=== PATIENT | female | born 1945 | race Two or more races ===

== ENCOUNTER 2019-01-22 17:46 | Emergency (ER) | payer MEDICARE, MEDICAID ==
[~2019-01-22] VITALS: Ht 154.9 cm; Wt 113.4 kg
[~2019-01-22 17:46] MED LIST: ALPR0.254 PO; ATOR20TA50 PO; BACL20TA PO; FAM20T PO; HYDR-4683 PO; INSU1INJ14 SC; LEVO125T7 PO; LISI10TA6 PO; LORA-654 PO; METO-158 PO; OME20T PO; SERT-135 PO; TEMA30CA PO
[2019-01-22 19:34] LABS: Basophils # (auto) 0 uL; Basophils % (auto) 0.4 % (0.0-2.0); Eosinophils # (auto) 0 uL; Eosinophils % (auto) 0.2 % (0.0-7.0); Hematocrit 40.1 % (36.0-46.0); Hemoglobin 13.1 g/dL (12.2-16.2); Lymphocytes # (auto) 0.7 uL; Lymphocytes % (auto) 10.6 % (10.0-50.0); Mean Corpuscular Hemoglobin 29.3 pg (28.0-32.0); Mean Corpuscular Hgb Conc. 32.6 g/dL (32.0-36.0); Mean Corpuscular Volume 89.8 fL (80.0-100.0); Monocytes # (auto) 0.3 uL; Monocytes % (auto) 4.9 % (0.0-12.0); Neutrophils # (auto) 5.3 uL; Neutrophils % (auto) 83.9 % (37.0-80.0); Platelet Count (auto) 263 10^3/uL (140-450); Red Blood Cells 4.46 10^6/uL (4.0-5.20); Red Cell Distribution Width 16.5 % (11.8-14.3); White Blood Cell 6.3 10^3/uL (4.4-10.8)
[2019-01-22 19:48] LABS: Chloride 109 mmol/L (98-107); Sodium 139 mmol/L (136-145)
[2019-01-22 19:51] LABS: Albumin 3.6 g/dL (3.4-5.0); Anion Gap 8 (5-15); Blood Urea Nitrogen 21 mg/dL (7-18); Calcium 8.4 mg/dL (8.5-10.1); Carbon Dioxide 22 mmol/L (21-32); Glucose 132 mg/dL (74-106); Magnesium 2.4 mg/dL (1.6-2.6)
[2019-01-22 19:57] LABS: Alkaline Phosphatase 117 U/L (45-117); Aspartate Aminotransferase 24 U/L (15-37); BUN/Creatinine Ratio 22.3; Bilirubin, Total 0.3 mg/dL (0.2-1.0); GFR African American 75 mL/min; GFR Non-African American 62 mL/min; Total Protein 8.3 g/dL (6.4-8.2)
[2019-01-22 20:04] LABS: Alanine Aminotransferase 27 U/L (13-56)
[2019-01-22] MEDS ORDERED: FAMOTIDINE (10MG/ML) 2ML VL IV ONE (23:15)
[2019-01-22] MEDS ORDERED: ONDANSETRON HCL 4 MG/2 ML VIAL IV ONE (23:15)
[2019-01-22] MEDS ORDERED: SODIUM CHLORIDE 0.9% 1,000 ML IV ONE (23:15)
[2019-01-23 04:31] LABS: Amylase 37 U/L (25-115); Lipase 76 U/L (73-393)
[2019-01-23 08:21] VITALS: BP 134/76
== END 2019-01-23 09:20 | disposition home or self-care (01) ==
LOC: EDBD 17:46 → ER 17:46
DX: K29.00 Acute gastritis without bleeding (principal); E11.9 Type 2 diabetes mellitus without complications; I10 Essential (primary) hypertension; Z90.49 Acquired absence of other specified parts of digestive tract
CPT/HCPCS: 36415; 71045; 74176; 80053; 82150; 83690; 83735; 84484; 85025; 93005; 96361; 96374; 96375; 99284; J2405; J3490

== ENCOUNTER 2019-03-19 09:02 | Inpatient (IN) | payer MEDICARE, MEDICAID | END 2019-03-21 07:00 | disposition left against medical advice (07) | LOC: TELE-CENTR 03-20 02:34 → ER 09:02 → TELE 11:36 → CENTRAL 13:02 | DX: I13.0 Hypertensive heart and chronic kidney disease with heart failure and stage 1 through stage 4 chronic kidney disease, or unspecified chronic kidney disease (principal); I50.43 Acute on chronic combined systolic (congestive) and diastolic (congestive) heart failure; I47.1 Supraventricular tachycardia; E66.01 Morbid (severe) obesity due to excess calories; E78.5 Hyperlipidemia, unspecified; F41.9 Anxiety disorder, unspecified; J44.9 Chronic obstructive pulmonary disease, unspecified ==

== ENCOUNTER 2019-05-30 14:16 | Inpatient (IN) | payer MEDICARE, MEDICAID ==
[~2019-05-30] VITALS: Ht 157.5 cm; Wt 124.9 kg
[~2019-05-30 14:16] MED LIST changes: -HYDR-4683 PO; +HYDR-4833 PO; -LORA-654 PO; +LORA0.5T12 PO; -SERT-135 PO; +SERT100T PO
[2019-05-30] MEDS ORDERED: methylPREDNISolone SOD SUCC 125 MG/2 ML VL IV ONE (14:45)
[2019-05-30] MEDS ORDERED: ALBUTEROL SULF 2.5 MG/0.5ML(0.5%) NEB SOLN HHN ONE (14:45)
[2019-05-30] MEDS ORDERED: IPRATROPIUM BROM 0.5 MG/2.5ML INH SOL HHN ONE (14:45)
[2019-05-30 15:24] LABS: Lymphocytes # (auto) 0.9 uL; Nucleated Red Blood Cells % 0.7 %
[2019-05-30 15:27] LABS: Basophils # (auto) 0 uL; Basophils % (auto) 0.7 % (0.0-2.0); Eosinophils # (auto) 0.3 uL; Hematocrit 23.8 % (36.0-46.0); Lymphocytes % (auto) 13.9 % (10.0-50.0); Mean Corpuscular Hemoglobin 20.3 pg (28.0-32.0); Mean Corpuscular Hgb Conc. 28.5 g/dL (32.0-36.0); Mean Corpuscular Volume 71.4 fL (80.0-100.0); Monocytes # (auto) 0.5 uL; Monocytes % (auto) 8.3 % (0.0-12.0); Neutrophils # (auto) 4.6 uL; Neutrophils % (auto) 73.1 % (37.0-80.0); Platelet Count (auto) 284 10^3/uL (140-450); Red Blood Cells 3.33 10^6/uL (4.0-5.20); White Blood Cell 6.2 10^3/uL (4.4-10.8)
[2019-05-30 15:43] LABS: Alanine Aminotransferase 10 U/L (13-56); Albumin 3.3 g/dL (3.4-5.0); Anion Gap 9 (5-15); Aspartate Aminotransferase 13 U/L (15-37); Blood Urea Nitrogen 35 mg/dL (7-18); Calcium 7.7 mg/dL (8.5-10.1); Carbon Dioxide 20 mmol/L (21-32); Chloride 113 mmol/L (98-107); GFR African American 54 mL/min; GFR Non-African American 45 mL/min; Glucose 124 mg/dL (74-106); Magnesium 2.4 mg/dL (1.6-2.6); Potassium 4.3 mmol/L (3.5-5.1); Sodium 142 mmol/L (136-145)
[2019-05-30 15:48] LABS: Alkaline Phosphatase 93 U/L (45-117); Bilirubin, Total 0.4 mg/dL (0.2-1.0); Total Protein 7.2 g/dL (6.4-8.2)
[2019-05-30 16:43] LABS: Hemoglobin 6.8 g/dL (12.2-16.2); Red Cell Distribution Width 21.7 % (11.8-14.3)
[2019-05-30] MEDS ORDERED: ALBUTEROL SULF 2.5 MG/0.5ML(0.5%) NEB SOLN NEB PRN (17:00)
[2019-05-30] MEDS ORDERED: LORazepam 0.5 MG TAB PO PRN (17:00)
[2019-05-30] MEDS ORDERED: MORPHINE SULF INJ 2 MG/ML SYRINGE 1ML IV PRN (17:00)
[2019-05-30] MEDS ORDERED: NITROGLYCERIN 0.4 MG SL TAB SL PRN (17:00)
[2019-05-30] MEDS ORDERED: ACETAMINOPHEN 500 MG TAB PO PRN (17:00)
[2019-05-30] MEDS ORDERED: TEMAZEPAM 15 MG CAP PO SCH (18:00)
[2019-05-30] MEDS: IPRATROPIUM BROM 0.5 MG/2.5ML INH SOL NEB SCH (18:18)
[2019-05-30] MEDS: ALBUTEROL SULF 2.5 MG/0.5ML(0.5%) NEB SOLN NEB SCH (18:18)
[2019-05-30] MEDS: MORPHINE SULF INJ 2 MG/ML SYRINGE 1ML IV PRN ×2 (19:44→23:51)
[2019-05-30] MEDS: PROMETHAZINE HCL 25 MG/ML 1ML IV PRN ×2 (19:44→23:51)
[2019-05-30 19:45] VITALS: BP_SYST 138
[2019-05-30] MEDS: PANTOPRAZOLE 40 MG TAB PO SCH (23:19)
[2019-05-30] MEDS: SERTRALINE HCL 50 MG TAB PO SCH (23:19)
[2019-05-30] MEDS: METOPROLOL TARTRATE 25 MG TAB PO SCH (23:19)
[2019-05-30 23:59] LABS: Urine Bacteria FEW /hpf (None Seen); Urine Blood Negative /uL (Negative); Urine Specific Gravity 1.018 (1.001-1.035); Urine WBC 2 /hpf (0 - 5)
[2019-05-31 00:10] LABS: Hematocrit 23.6 % (36.0-46.0)
[2019-05-31 00:12] LABS: Hemoglobin 6.7 g/dL (12.2-16.2)
[2019-05-31] MEDS: IPRATROPIUM BROM 0.5 MG/2.5ML INH SOL NEB SCH ×4 (00:22→19:02)
[2019-05-31] MEDS: ALBUTEROL SULF 2.5 MG/0.5ML(0.5%) NEB SOLN NEB SCH ×4 (00:22→19:02)
[2019-05-31 03:41] LABS: INR 0.93 (0.9-1.15); Partial Thromboplastin Time 23.5 sec (23.64-32.05)
[2019-05-31 06:43] LABS: Basophils # (auto) 0 uL; Eosinophils # (auto) 0 uL; Monocytes # (auto) 0.4 uL; White Blood Cell 4.8 10^3/uL (4.4-10.8)
[2019-05-31 06:46] LABS: Basophils % (auto) 0.6 % (0.0-2.0); Hematocrit 21.4 % (36.0-46.0); Lymphocytes # (auto) 0.7 uL; Lymphocytes % (auto) 14.8 % (10.0-50.0); Mean Corpuscular Hemoglobin 20.6 pg (28.0-32.0); Monocytes % (auto) 8.2 % (0.0-12.0); Neutrophils # (auto) 3.7 uL; Neutrophils % (auto) 76.4 % (37.0-80.0); Nucleated Red Blood Cells % 0.9 %; Platelet Count (auto) 241 10^3/uL (140-450); Red Blood Cells 3.02 10^6/uL (4.0-5.20)
[2019-05-31 06:57] LABS: Hemoglobin 6.2 g/dL (12.2-16.2); Red Cell Distribution Width 21.9 % (11.8-14.3)
[2019-05-31 07:06] LABS: Potassium 4.9 mmol/L (3.5-5.1)
[2019-05-31 07:10] LABS: BUN/Creatinine Ratio 25.2; Calcium 8.2 mg/dL (8.5-10.1)
[2019-05-31 07:12] LABS: Bilirubin, Total 0.3 mg/dL (0.2-1.0); Total Protein 6.7 g/dL (6.4-8.2)
[2019-05-31] MEDS: LEVOTHYROXINE SODIUM 50 MCG TAB PO SCH (07:38)
[2019-05-31] MEDS: PROMETHAZINE HCL 25 MG/ML 1ML IV PRN ×2 (09:02→14:38)
[2019-05-31] MEDS: MORPHINE SULF INJ 2 MG/ML SYRINGE 1ML IV PRN ×4 (09:02→22:01)
[2019-05-31] MEDS: INSULIN DEGLUDEC 20 UNIT SC SCH (09:41)
[2019-05-31] MEDS: ATORVASTATIN 20 MG TAB PO SCH (09:42)
[2019-05-31 09:45] VITALS: BP 125/59
[2019-05-31] MEDS: METOPROLOL TARTRATE 25 MG TAB PO SCH ×2 (10:00→22:00)
[2019-05-31] MEDS: LISINOPRIL 10 MG TAB PO SCH (10:00)
[2019-05-31] MEDS: FUROSEMIDE 40 MG/4 ML VIAL IV SCH (10:00)
[2019-05-31] MEDS: POTASSIUM CHL 20 Meq TABLET PO SCH (10:00)
[2019-05-31] MEDS: SERTRALINE HCL 50 MG TAB PO SCH ×2 (10:01→22:42)
[2019-05-31] MEDS: PANTOPRAZOLE 40 MG TAB PO SCH ×2 (10:01→22:12)
[2019-05-31 21:28] LABS: Basophils # (auto) 0.1 uL; Hemoglobin 7.1 g/dL (12.2-16.2); Monocytes # (auto) 0.5 uL; Red Blood Cells 3.28 10^6/uL (4.0-5.20); White Blood Cell 6.9 10^3/uL (4.4-10.8)
[2019-05-31 21:30] LABS: Basophils % (auto) 0.9 % (0.0-2.0); Eosinophils # (auto) 0.2 uL; Eosinophils % (auto) 2.6 % (0.0-7.0); Hematocrit 24.2 % (36.0-46.0); Lymphocytes # (auto) 1.4 uL; Lymphocytes % (auto) 20.1 % (10.0-50.0); Mean Corpuscular Hemoglobin 21.5 pg (28.0-32.0); Mean Corpuscular Hgb Conc. 29.2 g/dL (32.0-36.0); Mean Corpuscular Volume 73.7 fL (80.0-100.0); Monocytes % (auto) 7.5 % (0.0-12.0); Neutrophils # (auto) 4.7 uL; Neutrophils % (auto) 68.9 % (37.0-80.0); Nucleated Red Blood Cells % 0.9 %; Platelet Count (auto) 212 10^3/uL (140-450)
[2019-05-31] MEDS: TEMAZEPAM 15 MG CAP PO SCH (22:12)
--- NOTE | 2019-05-31 23:40 | NUR ---
PATIENT ADMITTED TO TELEMETRY FLOOR. PATIENT IS ALERT AND ORIENTATED X 4. ORIENTATED PATIENT TO ROOM AND RNJANIS. PATIENT IS ON TELEMONITOR # 1. PATIENT SHOWS NO SIGNS OR SYMPTOMS OF DISTRESS. PATIENT IS ON 2 L N/C. BED IS IN LOW POSITION AND CALL LIGHT WITHIN REACH. INSTRUCTED ON POC. WILL CONTINUE TO MONITOR Q 1HR AND PRN
[2019-06-01] VITALS (11 sets, daily range): BP systolic 109–135; BP diastolic 52–68
[2019-06-01] MEDS: ALBUTEROL SULF 2.5 MG/0.5ML(0.5%) NEB SOLN NEB SCH ×4 (00:38→18:24)
[2019-06-01] MEDS: IPRATROPIUM BROM 0.5 MG/2.5ML INH SOL NEB SCH ×4 (00:39→18:24)
--- NOTE | 2019-06-01 05:09 | NUR ---
SCD applied on patient per protocol.
[2019-06-01 05:26] LABS: Basophils # (auto) 0.1 uL; Basophils % (auto) 0.9 % (0.0-2.0); Eosinophils # (auto) 0.2 uL; Hemoglobin 7.3 g/dL (12.2-16.2); White Blood Cell 6.6 10^3/uL (4.4-10.8)
[2019-06-01 05:30] LABS: Eosinophils % (auto) 3.7 % (0.0-7.0); Hematocrit 23.8 % (36.0-46.0); Lymphocytes # (auto) 1.3 uL; Lymphocytes % (auto) 20.2 % (10.0-50.0); Mean Corpuscular Hemoglobin 21.8 pg (28.0-32.0); Mean Corpuscular Hgb Conc. 30.7 g/dL (32.0-36.0); Mean Corpuscular Volume 71.1 fL (80.0-100.0); Monocytes # (auto) 0.5 uL; Monocytes % (auto) 7.7 % (0.0-12.0); Neutrophils # (auto) 4.4 uL; Neutrophils % (auto) 67.5 % (37.0-80.0); Nucleated Red Blood Cells % 0.8 %; Platelet Count (auto) 217 10^3/uL (140-450); Red Blood Cells 3.35 10^6/uL (4.0-5.20)
[2019-06-01 05:31] LABS: Red Cell Distribution Width 23.1 % (11.8-14.3)
--- NOTE | 2019-06-01 06:00 | NUR ---
Patient does not have information for medication reconciliation at the moment. Per patient she does not have someone at the moment to call for the information.
[2019-06-01] MEDS: MORPHINE SULF INJ 2 MG/ML SYRINGE 1ML IV PRN ×3 (06:46→21:59)
[2019-06-01] MEDS: LEVOTHYROXINE SODIUM 50 MCG TAB PO SCH (06:47)
--- NOTE | 2019-06-01 07:30 | NUR ---
Opening Shift Note Assumed care of patient, awake and alert. No S/S of distress/SOB or pain. Instructed on POC and to call for assist PRN, will continue to monitor for changes Q1hr and PRN.
--- NOTE | 2019-06-01 07:32 | NUR ---
REPORT GIVEN TO DAY SHIFT NURSE.
[2019-06-01] MEDS: INSULIN DEGLUDEC 20 UNIT SC SCH (10:00)
[2019-06-01] MEDS: POTASSIUM CHL 20 Meq TABLET PO SCH (10:30)
[2019-06-01] MEDS: ATORVASTATIN 20 MG TAB PO SCH (10:30)
[2019-06-01] MEDS: FUROSEMIDE 40 MG/4 ML VIAL IV SCH (10:30)
[2019-06-01] MEDS: SERTRALINE HCL 50 MG TAB PO SCH ×2 (10:31→21:40)
[2019-06-01] MEDS: PANTOPRAZOLE 40 MG TAB PO SCH ×2 (10:31→21:41)
[2019-06-01] MEDS: METOPROLOL TARTRATE 25 MG TAB PO SCH ×2 (10:31→21:44)
[2019-06-01] MEDS: LISINOPRIL 10 MG TAB PO SCH (10:31)
--- NOTE | 2019-06-01 13:23 | NUR ---
BLOOD TRANSFUSION BEGAN. 1 UNIT OF PRBC BEING INFUSED. INFUSION STARTED AT 50ML/HR AND OBSERVATION FOR 15 MINUTES. BASELINE VITAL SIGNS WITHIN NORMAL LIMITS.
--- NOTE | 2019-06-01 13:38 | NUR ---
15 MINUTE REASSESSMENT PATIENT TOLERATING TRANSFUSION WELL. NO SIGNS OF TRANSFUSION REACTION REPORTED OR OBSERVED. VITAL SIGNS ARE STILL WITHIN NORMAL LIMITS AND AROUND BASELINE. INFUSION RATE INCREASED TO 150ML/HR. WILL CONTINUE TO MONITOR PATIENT.
--- NOTE | 2019-06-01 14:50 | NUR ---
IV insertion IV access obtained, via clean sterile technique by inserting 20 gauge catheter at right forearm after 1 attempt. IV secured properly. No trauma to site. Patient tolerated well. NOTE: OLD IV TO LEFT AC REMOVED DUE TO LEAKING. CATHETER WAS INTACT AND PRESSURE DRESSING APPLIED.
--- NOTE | 2019-06-01 16:25 | NUR ---
TRANSFUSION FINISHED. PATIENT TOLERATED WELL. NO SIGNS OF DISTRESS OR TRANSFUSION REACTIONS. WILL CONTINUE TO MONITOR PATIENT
[2019-06-01] MEDS: HYDROcodone-ACET 5/325MG TAB PO PRN (18:03)
--- NOTE | 2019-06-01 19:55 | NUR ---
Opening Shift Note Assumed care of patient. Patient is sleeping with bilateral chest rise and fall. No S/S of distress/SOB or pain. Will continue to monitor for changes Q1hr and PRN. Call light within reach and bed in low position.
[2019-06-01] MEDS: TEMAZEPAM 15 MG CAP PO SCH (21:40)
--- NOTE | 2019-06-01 22:50 | NUR ---
Transferred patient care to RNAnkush. Answered all questions and concerns related to patient.
[2019-06-02] MEDS: ALBUTEROL SULF 2.5 MG/0.5ML(0.5%) NEB SOLN NEB SCH ×4 (00:08→18:04)
[2019-06-02] MEDS: IPRATROPIUM BROM 0.5 MG/2.5ML INH SOL NEB SCH ×4 (00:08→18:04)
[2019-06-02 05:40] VITALS: BP 121/61
[2019-06-02] MEDS: LEVOTHYROXINE SODIUM 50 MCG TAB PO SCH (05:51)
[2019-06-02 07:07] LABS: Basophils # (auto) 0 uL; Basophils % (auto) 0.5 % (0.0-2.0); Eosinophils # (auto) 0.3 uL; Hemoglobin 9.4 g/dL (12.2-16.2); Lymphocytes # (auto) 1.2 uL; Monocytes # (auto) 0.6 uL; Neutrophils # (auto) 4.1 uL; White Blood Cell 6.2 10^3/uL (4.4-10.8)
[2019-06-02 07:11] LABS: Hematocrit 30.8 % (36.0-46.0); Lymphocytes % (auto) 19.5 % (10.0-50.0); Mean Corpuscular Hemoglobin 22.3 pg (28.0-32.0); Mean Corpuscular Hgb Conc. 30.5 g/dL (32.0-36.0); Nucleated Red Blood Cells % 1.4 %; Platelet Count (auto) 236 10^3/uL (140-450); Red Blood Cells 4.22 10^6/uL (4.0-5.20)
--- NOTE | 2019-06-02 07:20 | NUR ---
Opening Shift Note Assumed care of patient, awake and alert. No S/S of distress/SOB or pain. Instructed on POC and to call for assist PRN, patient call light within reach, will continue to monitor for changes Q1hr and PRN.
[2019-06-02 07:26] LABS: Red Cell Distribution Width 23.4 % (11.8-14.3)
[2019-06-02 08:00] VITALS: BP 120/59
[2019-06-02 09:00] VITALS: BP 120/59
[2019-06-02] MEDS: METOPROLOL TARTRATE 25 MG TAB PO SCH ×2 (10:00→21:18)
[2019-06-02] MEDS: INSULIN DEGLUDEC 20 UNIT SC SCH (10:00)
--- NOTE | 2019-06-02 10:05 | NUR ---
PATIENT TAKEN TO PREOP FOR EGD PROCEDURE
[2019-06-02] MEDS ORDERED: MIDAZOLAM HCL 1MG/1ML-2 ML VIAL ONE (11:30)
[2019-06-02] MEDS ORDERED: fentaNYL CITRATE 100 MCG/2 ML VL ONE (11:30)
[2019-06-02] MEDS ORDERED: DexAMETHasone SOD PHOS 10MG/1ML VIAL INJ ONE (11:35)
[2019-06-02] MEDS ORDERED: PROPOFOL 10 MG/ML 20 ML IV ONE (11:35)
[2019-06-02] MEDS ORDERED: MIDAZOLAM HCL 1MG/1ML-2 ML VIAL IV PRN (12:00)
[2019-06-02] MEDS ORDERED: ONDANSETRON HCL 4 MG/2 ML VIAL IV PRN (12:00)
[2019-06-02] MEDS ORDERED: ePHEDrine SULFATE 50 MG/ML AMP IV PRN (12:00)
[2019-06-02] MEDS ORDERED: LABETALOL HCL 5 MG/ML 4ML SYRINGE IV PRN (12:00)
[2019-06-02] MEDS ORDERED: MORPHINE SULFATE 4 MG/ML SYR/VIAL IV PRN (12:00)
[2019-06-02] MEDS ORDERED: METOCLOPRAMIDE HCL 5MG/ml INJ 2ml VIAL IV PRN (12:00)
--- NOTE | 2019-06-02 12:38 | NUR ---
Patient returned to floor from EGD Vital Signs bp 125/69, 74 hr, 18 RR, 91% 02 sat on RA.
[2019-06-02 13:00] VITALS: BP 97/56
[2019-06-02] MEDS: MORPHINE SULF INJ 2 MG/ML SYRINGE 1ML IV PRN ×2 (13:37→19:22)
[2019-06-02] MEDS: POTASSIUM CHL 20 Meq TABLET PO SCH (13:40)
[2019-06-02] MEDS: FUROSEMIDE 40 MG/4 ML VIAL IV SCH (13:40)
[2019-06-02] MEDS: ATORVASTATIN 20 MG TAB PO SCH (13:41)
[2019-06-02] MEDS: SERTRALINE HCL 50 MG TAB PO SCH ×2 (13:41→21:17)
[2019-06-02] MEDS: PANTOPRAZOLE 40 MG TAB PO SCH ×2 (13:41→21:18)
[2019-06-02] MEDS: LISINOPRIL 10 MG TAB PO SCH (13:42)
[2019-06-02 17:00] VITALS: BP 125/66
--- NOTE | 2019-06-02 20:10 | NUR ---
RECEIVED PATIENT IN BED, AAOX4. NO DISTRESS NOTED. INTRODUCED MYSELF TO THE PATIENT. PALE IN APPEARANCE. DENIES ANY PAIN NOW. WITH MILD BLE WEAKNESS NOTED. ABLE TO TURN FROM SIDE TO SIDE.NO SOB NOTED. POCS DISCUSSED WITH PATIENT AND SHOWED UNDERSTANDING. BED KEPT ON LOWEST POSITION. SIDE RAILS UP. CALL LIGHT/TABLE IN REACH. KEPT COMFORTABLE.
[2019-06-02] MEDS: TEMAZEPAM 15 MG CAP PO SCH (21:17)
[2019-06-02] MEDS: HYDROcodone-ACET 5/325MG TAB PO PRN (21:18)
[2019-06-03] MEDS: ALBUTEROL SULF 2.5 MG/0.5ML(0.5%) NEB SOLN NEB SCH ×3 (00:21→12:07)
[2019-06-03] MEDS: IPRATROPIUM BROM 0.5 MG/2.5ML INH SOL NEB SCH ×3 (00:21→12:07)
[2019-06-03] MEDS: MORPHINE SULF INJ 2 MG/ML SYRINGE 1ML IV PRN ×3 (01:02→13:17)
[2019-06-03 03:38] VITALS: BP 118/69
[2019-06-03 05:30] VITALS: BP 121/60
[2019-06-03] MEDS: LEVOTHYROXINE SODIUM 50 MCG TAB PO SCH (06:07)
[2019-06-03 06:23] LABS: Basophils # (auto) 0 uL; Eosinophils # (auto) 0 uL; Lymphocytes # (auto) 0.9 uL; Neutrophils # (auto) 6.2 uL; Neutrophils % (auto) 80.5 % (37.0-80.0)
[2019-06-03 06:25] LABS: Basophils % (auto) 0.2 % (0.0-2.0); Eosinophils % (auto) 0.2 % (0.0-7.0); Hematocrit 30.6 % (36.0-46.0); Hemoglobin 9.5 g/dL (12.2-16.2); Lymphocytes % (auto) 12.2 % (10.0-50.0); Mean Corpuscular Hemoglobin 22.2 pg (28.0-32.0); Mean Corpuscular Volume 71.6 fL (80.0-100.0); Monocytes # (auto) 0.5 uL; Monocytes % (auto) 6.9 % (0.0-12.0); Nucleated Red Blood Cells % 0.7 %; Platelet Count (auto) 243 10^3/uL (140-450); Red Blood Cells 4.27 10^6/uL (4.0-5.20); White Blood Cell 7.7 10^3/uL (4.4-10.8)
--- NOTE | 2019-06-03 06:25 | NUR ---
ON BED, ASLEEP. NO DISTRESS NOTED. FOR MORE CARE AND MANAGEMENT.
[2019-06-03 06:35] LABS: Red Cell Distribution Width 23.6 % (11.8-14.3)
[2019-06-03 09:00] VITALS: BP 125/53
--- NOTE | 2019-06-03 09:50 | NUR ---
Dr. Sweeney at bed side to see pt, doctor discussed plan of care with pt,
[2019-06-03] MEDS: INSULIN DEGLUDEC 20 UNIT SC SCH (10:00)
[2019-06-03] MEDS: LISINOPRIL 10 MG TAB PO SCH (10:00)
[2019-06-03] MEDS: FUROSEMIDE 40 MG/4 ML VIAL IV SCH (10:11)
[2019-06-03] MEDS: POTASSIUM CHL 20 Meq TABLET PO SCH (10:11)
[2019-06-03] MEDS: ATORVASTATIN 20 MG TAB PO SCH (10:11)
[2019-06-03] MEDS: PANTOPRAZOLE 40 MG TAB PO SCH (10:11)
[2019-06-03] MEDS: METOPROLOL TARTRATE 25 MG TAB PO SCH (10:11)
[2019-06-03] MEDS: SERTRALINE HCL 50 MG TAB PO SCH (10:12)
[2019-06-03 10:46] VITALS: BP 125/53
--- NOTE | 2019-06-03 12:07 | NUR ---
Respiratory note: PT REFUSING SCHEDULED MEDNEB TX AT THIS TIME, PT SAYS SHE IS TIRED AND WANTS TO TAKE A NAP. HR 68, RR 18, POX 91% ON ROOM AIR. BREATH SOUNDS CLEAR/DIMINISHED. NO S/S OF RESPIRATORY DISTRESS. ADVISED PT TO CALL FOR RT IF SHE CHANGES HER MIND.
[2019-06-03 13:00] VITALS: BP 110/54
--- NOTE | 2019-06-03 13:50 | NUR ---
Discharge instructions given as ordered. Encourage to follow up with PMD, playground equipment erector, and training professional as instructed. All questions and concerns addressed. Patient verbalized understanding. Medication reconciliation form completed and copy given to patient. No home medications held in Pharmacy, and no needed vaccines to be given. IV removed with catheter intact, pressure dressing applied, drake catheter removed. Telemetry unit returned to ICU.
--- NOTE | 2019-06-03 13:55 | NUR ---
Called taxi to parts picker pt, as per [employer] pt will be parts picker in 30 min. pt informed, pt requesting for taxi to be called and be cancel for now, pt states that she wants to be parts picker after 1430. Taxi called and informed. will call taxi back again.
--- NOTE | 2019-06-03 15:15 | NUR ---
Patient taken to taxi via wheelchair with all personal belongings, accompanied by staff member. No distress noted at time of departure.
== END 2019-06-03 15:15 | disposition home or self-care (01) | DRG 377 ==
LOC: ER 14:18 → TELE 14:19 → TELE-EAST 05-31 23:29
PROVIDERS: ADMIT Internal Medicine; ATTEND Family Medicine
PROC: 0DB68ZX Excision of Stomach, Via Natural or Artificial Opening Endoscopic, Diagnostic (ICD-10-PCS; 2019-06-02)
PROC: 30233N1 Transfusion of Nonautologous Red Blood Cells into Peripheral Vein, Percutaneous Approach (ICD-10-PCS; principal; 2019-06-02 11:15)
DX: K25.4 Chronic or unspecified gastric ulcer with hemorrhage (principal); J96.20 Acute and chronic respiratory failure, unspecified whether with hypoxia or hypercapnia; J44.1 Chronic obstructive pulmonary disease with (acute) exacerbation; F19.20 Other psychoactive substance dependence, uncomplicated; Z68.43 Body mass index [BMI] 50.0-59.9, adult; I50.83 High output heart failure; I11.0 Hypertensive heart disease with heart failure; I50.9 Heart failure, unspecified; D50.0 Iron deficiency anemia secondary to blood loss (chronic); E11.9 Type 2 diabetes mellitus without complications; K29.80 Duodenitis without bleeding; Z87.11 Personal history of peptic ulcer disease; K44.9 Diaphragmatic hernia without obstruction or gangrene; E66.01 Morbid (severe) obesity due to excess calories; E03.9 Hypothyroidism, unspecified; M19.90 Unspecified osteoarthritis, unspecified site; F32.9 Major depressive disorder, single episode, unspecified; G47.00 Insomnia, unspecified; D63.8 Anemia in other chronic diseases classified elsewhere; E78.00 Pure hypercholesterolemia, unspecified; K76.9 Liver disease, unspecified; Z83.3 Family history of diabetes mellitus; Z86.010 Personal history of colon polyps; Z90.49 Acquired absence of other specified parts of digestive tract; Z90.710 Acquired absence of both cervix and uterus; Z79.899 Other long term (current) drug therapy; Z88.8 Allergy status to other drugs, medicaments and biological substances
CPT/HCPCS: 36415; 43239; 71045; 80053; 81001; 82550; 82962; 83735; 83880; 84484; 85014; 85018; 85025; 85045; 85610; 85730; 86850; 86870; 86880; 86900; 86901; 86906; 86922; 86971; 87081; 93005; 93306; 94640; 94644; 94761; 99291; G0378; J1100; J2250; J2704

== ENCOUNTER 2019-06-20 20:17 | Emergency (ER) | payer MEDICARE, MEDICAID ==
[~2019-06-20] VITALS: Ht 157.5 cm; Wt 113.4 kg
[2019-06-21] MEDS ORDERED: ACETAMINOPHEN 325 MG TAB PO ONE ×2 (05:41→05:45)
[2019-06-21] MEDS ORDERED: HYDROcodone-ACET 10/325MG TAB PO ONE (08:15)
[2019-06-21 09:30] VITALS: BP 105/71
== END 2019-06-21 09:52 | disposition home or self-care (01) ==
LOC: EDBD 20:17 → ER 20:25
DX: G89.4 Chronic pain syndrome (principal); M54.9 Dorsalgia, unspecified; M54.2 Cervicalgia; M79.603 Pain in arm, unspecified; M79.606 Pain in leg, unspecified; J45.909 Unspecified asthma, uncomplicated; E11.9 Type 2 diabetes mellitus without complications; I10 Essential (primary) hypertension; Z90.49 Acquired absence of other specified parts of digestive tract; Z90.710 Acquired absence of both cervix and uterus; Z88.7 Allergy status to serum and vaccine; Z79.4 Long term (current) use of insulin; Z79.899 Other long term (current) drug therapy

== ENCOUNTER 2019-06-22 09:14 | Emergency (ER) | payer MEDICARE, MEDICAID ==
[~2019-06-22] VITALS: Ht 154.9 cm; Wt 113.4 kg
[2019-06-22 09:55] LABS: Basophils # (auto) 0.1 uL; Eosinophils # (auto) 0 uL; Lymphocytes # (auto) 0.7 uL; Mean Corpuscular Volume 72.3 fL (80.0-100.0); Monocytes # (auto) 0.4 uL
[2019-06-22 09:57] LABS: Basophils % (auto) 0.8 % (0.0-2.0); Eosinophils % (auto) 0.4 % (0.0-7.0); Hematocrit 34.9 % (36.0-46.0); Hemoglobin 10.3 g/dL (12.2-16.2); Lymphocytes % (auto) 11.3 % (10.0-50.0); Mean Corpuscular Hemoglobin 21.3 pg (28.0-32.0); Mean Corpuscular Hgb Conc. 29.5 g/dL (32.0-36.0); Monocytes % (auto) 5.8 % (0.0-12.0); Neutrophils # (auto) 5.3 uL; Neutrophils % (auto) 81.7 % (37.0-80.0); Platelet Count (auto) 321 10^3/uL (140-450); Red Blood Cells 4.82 10^6/uL (4.0-5.20); Red Cell Distribution Width 24.3 % (11.8-14.3); White Blood Cell 6.5 10^3/uL (4.4-10.8)
[2019-06-22 10:22] LABS: Alanine Aminotransferase 25 U/L (13-56); Albumin 4.2 g/dL (3.4-5.0); Anion Gap 14 (5-15); Aspartate Aminotransferase 34 U/L (15-37); BUN/Creatinine Ratio 23.4; Blood Urea Nitrogen 50 mg/dL (7-18); Calcium 8.8 mg/dL (8.5-10.1); Carbon Dioxide 16 mmol/L (21-32); Chloride 112 mmol/L (98-107); GFR African American 29 mL/min; GFR Non-African American 24 mL/min; Glucose 69 mg/dL (74-106); Magnesium 2.4 mg/dL (1.6-2.6); Potassium 3.8 mmol/L (3.5-5.1); Sodium 142 mmol/L (136-145)
[2019-06-22 10:26] LABS: Alkaline Phosphatase 97 U/L (45-117); Bilirubin, Total 0.7 mg/dL (0.2-1.0); Total Protein 8.4 g/dL (6.4-8.2)
[2019-06-22 10:56] VITALS: BP 97/25
== END 2019-06-22 14:13 | disposition home or self-care (01) ==
LOC: ER 09:14 → EDBD 09:14 → ER 14:13
DX: R07.89 Other chest pain (principal); J45.909 Unspecified asthma, uncomplicated; E11.9 Type 2 diabetes mellitus without complications; I10 Essential (primary) hypertension; Z90.710 Acquired absence of both cervix and uterus; Z79.4 Long term (current) use of insulin; Z79.899 Other long term (current) drug therapy; Z88.8 Allergy status to other drugs, medicaments and biological substances
CPT/HCPCS: 36415; 71045; 80053; 83735; 83880; 84484; 85025; 93005; 94761

== ENCOUNTER 2019-06-23 03:12 | Emergency (ER) | payer MEDICARE, MEDICAID ==
[~2019-06-23] VITALS: Ht 157.5 cm; Wt 108.9 kg
[2019-06-23 07:48] VITALS: BP 138/68
== END 2019-06-24 17:18 | disposition home or self-care (01) ==
LOC: ER 03:15
DX: M54.9 Dorsalgia, unspecified (principal); G89.29 Other chronic pain; M19.90 Unspecified osteoarthritis, unspecified site; J45.909 Unspecified asthma, uncomplicated; E11.9 Type 2 diabetes mellitus without complications; I10 Essential (primary) hypertension; E07.9 Disorder of thyroid, unspecified; Z90.710 Acquired absence of both cervix and uterus; Z88.7 Allergy status to serum and vaccine; Z79.4 Long term (current) use of insulin; Z79.899 Other long term (current) drug therapy; Z90.49 Acquired absence of other specified parts of digestive tract
CPT/HCPCS: 72100